=== PATIENT | male | born 1990 | race American Indian/Alaskan Native ===

== ENCOUNTER 2020-01-09 10:21 | Emergency (ER) | payer OTHER ==
[~2020-01-09] VITALS: Ht 170.2 cm; Wt 95.3 kg
[2020-01-09] MEDS ORDERED: CLONIDINE HCL0.3 MG PO (11:03)
[2020-01-09] MEDS ORDERED: ONDANSETRON ODT4 MG PO (11:03)
== END 2020-01-09 12:58 | disposition home or self-care (01) ==
LOC: ED 10:21
DX: F11.23 Opioid dependence with withdrawal (principal)
CPT/HCPCS: 96361; 96374; 96375; 99283-25; J1885; J2060; J2405; J7030